=== PATIENT | female | born 1995 | race Asian ===

== ENCOUNTER 2023-11-23 06:45 | Inpatient (IN) | payer OTHER ==
[2023-11-23 08:32] LABS: BASO % 0.2 % (0-2.0); EOS % 0.3 % (0-4.5); HEMATOCRIT 37.4 % (32.4-45.2); HEMOGLOBIN 12.4 GM/dL (10.7-15.3); LYMPH % 7.6 % (8-40); MCH 29.5 pg (25.7-33.7); MCHC 33.2 g/dl (32.0-36.0); MEAN CELL VOLUME 89.1 fl (80-96); MONO % 4.2 % (3.8-10.2); NEUT % 87.7 % (42.8-82.8); PLATELET COUNT 223 10^3/uL (134-434); RDW 14.5 % (11.6-15.6); WHITE BLOOD COUNT 17.9 K/mm3 (4.0-10.0)
[2023-11-23 08:36] LABS: INR 0.89 (0.83-1.09); PROTHROMBIN TIME (PATIENT) 10.1 SEC (9.7-13.0)
[2023-11-23] MEDS ORDERED: LIDOCAINE HCL 1% PRESERVATIVE FREE - 30ML VIAL ONE (08:49)
[2023-11-23] MEDS ORDERED: OXYTOCIN 20 UNITS in 0.9% NS 20 UNIT/1,000 ML INFUS.BAG IV ONE ×2 (08:50→10:40)
[2023-11-23 08:57] LABS: BLOOD UREA NITROGEN 10.8 mg/dL (7-18); CALCIUM 9.5 mg/dL (8.5-10.1)
[2023-11-23 09:01] LABS: CREATININE 0.6 mg/dL (0.55-1.3)
[2023-11-23 09:02] LABS: BILIRUBIN,TOTAL 0.5 mg/dL (0.2-1); TOT PROT 6.5 g/dl (6.4-8.2)
[2023-11-23] MEDS ORDERED: WITCH HAZEL 50% (TUCKS) 40 PAD/JAR PAD TP PRN (09:40)
[2023-11-23] MEDS ORDERED: BISACODYL 10 MG SUPP.RECT RC PRN (09:40)
[2023-11-23] MEDS ORDERED: ACETAMINOPHEN 325 MG TABLET (FP) PO PRN (09:40)
[2023-11-23] MEDS ORDERED: BENZOCAINE 20% 57 GM BOTTLE TP PRN (09:40)
[2023-11-23] MEDS ORDERED: BENZOCAINE 28 GM HEMORRHOIDAL OINTMENT TP PRN (09:40)
[2023-11-23] MEDS ORDERED: METHYLERGONOVINE MALEATE 0.2 MG/1 ML AMP IM PRN (09:40)
[2023-11-23 10:07] LABS: CORD BASE EXCESS -5.8 mmol/L (0-2); CORD HCO3 20.6 mmHg (20-29); CORD PCO2 43.6 mmHg (30-78); CORD pH 7.293 (7.14-7.44)
[2023-11-23 10:11] LABS: CORD BASE EXCESS -6.4 mmol/L (0-2); CORD HCO3 22.2 mmHg (20-29); CORD PCO2 56.3 mmHg (30-78); CORD pH 7.214 (7.14-7.44)
[2023-11-23 10:56] VITALS: BMI 29.0
[2023-11-23 11:40] LABS: HIV INTERPRETATION NEGATIVE (NEGATIVE)
[2023-11-23] MEDS: OXYTOCIN 20 UNITS in 0.9% NS 20 UNIT/1,000 ML INFUS.BAG IV SCH (12:40)
[2023-11-23] MEDS: PRENATAL VITAMINS W/ FOLIC ACID TABLET (FP) PO SCH (13:02)
[2023-11-24 07:51] LABS: BASO % 0.4 % (0-2.0); EOS % 0.6 % (0-4.5); HEMATOCRIT 30.3 % (32.4-45.2); HEMOGLOBIN 10.3 GM/dL (10.7-15.3); LYMPH % 17.2 % (8-40); MCH 30.4 pg (25.7-33.7); MCHC 33.9 g/dl (32.0-36.0); MEAN CELL VOLUME 89.6 fl (80-96); MEAN PLT VOLUME 9.3 fl (7.5-11.1); MONO % 7.7 % (3.8-10.2); NEUT % 74.1 % (42.8-82.8); PLATELET COUNT 222 10^3/uL (134-434); RBC 3.38 M/mm3 (3.60-5.2); RDW 14.9 % (11.6-15.6); WHITE BLOOD COUNT 13.1 K/mm3 (4.0-10.0)
[2023-11-24] MEDS: IBUPROFEN 600 MG TABLET (FP) PO PRN (21:24)
[2023-11-24] MEDS ORDERED: SENNOSIDES/DOCUSATE COMBO (SENNA PLUS) TABLET (UD) PO PRN (22:00)
[2023-11-25 11:02] VITALS: BP 110/78; PULSE 93; RESP 18; TEMP 98.1
== END 2023-11-25 15:20 | disposition home or self-care (01) | DRG 560 ==
LOC: JDEL 06:45 → JLDR 07:30 → J3W 12:45
PROVIDERS: ADMIT Obstetrics & Gynecology; ATTEND Obstetrics & Gynecology
PROC: 10E0XZZ Delivery of Products of Conception, External Approach (ICD-10-PCS; principal; 2023-11-23)
PROC: 0HQ9XZZ Repair Perineum Skin, External Approach (ICD-10-PCS; 2023-11-23)
PROC: 0W8NXZZ Division of Female Perineum, External Approach (ICD-10-PCS; 2023-11-23)
DX: O70.0 First degree perineal laceration during delivery (principal); Z3A.39 39 weeks gestation of pregnancy; Z37.0 Single live birth
CPT/HCPCS: 36415; 36600; 59025; 59409; 80053; 82803; 85025; 85610; 85730; 86780; 86850; 86900; 86901; 87389